=== PATIENT | male | born 1990 | race Caucasian/White ===

== ENCOUNTER 2024-04-28 10:06 | Emergency (ER) | payer OTHER, SELFPAY ==
--- NOTE | 2024-04-28 10:30 | ED_ITS ---
HPI - Extremity Problem General Chief complaint: Extremity Problem,Nontraumatic Stated complaint: rt foot irritation Time Seen by Provider: 04/28/24 11:08 Source: patient, RN notes reviewed and old records reviewed Mode of arrival: ambulatory Limitations: no limitations History of Present Illness HPI Narrative: 34-year-old male presents to the [facility] with right foot irritation to the dorsal aspect. States that he has athlete's foot for the last 3 weeks, over the last 24-48 hours the redness has gone up the anterior portion of his leg States he has used athlete's foot cream on and. States that he has recently hockey and became very sweaty. Related Data Home Medications ?Medication ?Instructions ?Recorded ?Confirmed ?Last Taken ?Type valacyclovir 500 mg tablet mg 04/28/24 Unknown History Allergies Allergy/AdvReac Type Severity Reaction Status Date / Time shellfish derived Allergy Intermediate Hives Verified 04/28/24 11:17 Review of Systems Review of Systems: All systems reviewed & are unremarkable except as noted in HPI and below Constitutional: Constitutional: Reports no additional constitutional complaints ENT: Reports system reviewed and no additional complaints, except as documented Cardiovascular: Cardiovascular: Reports no additional cardiovascular complaints, Denies chest pain and Denies dyspnea Respiratory: Respiratory: Reports no additional respiratory complaints, Denies chest congestion, Denies cough and Denies dyspnea Musculoskeletal: Musculoskeletal: Reports no additional musculoskeletal complaints Integumentary/Breasts: Skin/Breast: Reports as per HPI PMFSH Comments At the time of my signature, I reviewed and agree with the nursing past medical, surgical, social, and family history. There is no relevant family history pertinent to the patient complaint. Exam Const: General: cooperative, healthy appearing, comfortable, no acute distress, well developed, alert and well nourished Nutritional Appearance: well nourished Orientation/consciousness: patient oriented x3 Limitations: no limitations HENMT: Head: normal to inspection Face/Nose/Sinus: normal facial exam and face symmetric Face and sinus: normal facial exam and face symmetric Eyes: General: appearance normal, both eyes and all related structures Neck: Neck: normal visual inspection, full ROM, no lymphadenopathy and no meningeal signs Chest: Chest palpation & inspection: normal inspection of the chest Resp: Effort & Inspection: normal respiratory effort and able to speak in complete sentences Cardio: Rate: regular rate Skin: General skin exam: normal color Other: Dry flaky skin, erythema, cracking between all 5 toes and the dorsal aspect the foot, right. Red blotchy areas up just the anterior portion, not circumferential. Area is not hot to touch. No fluctuant areas. Areas are blanchable. Patient denies any pain to the area. Areas are not raised. Neuro: General: patient oriented x3, gait normal, moves all extremities and no meningeal signs Cognition (Neuro): normal cognition Speech: normal speech Gait exam (Neuro): Normal gait present Extrem: General: normal to inspection, full ROM, capillary refill normal and normal gait Psych: Appearance: grossly normal and well kempt Mental Status: mental status grossly normal Speech and movement: Normal speech and movement present and Clear speech present Affect: normal affect Attitude: cooperative Course Course Level of Care: Express Care Visit Vital Signs Vital signs: Vital Signs Temperature 97.1 F L 04/28/24 10:44 Pulse Rate 77 04/28/24 10:44 Respiratory Rate 18 04/28/24 10:44 Blood Pressure 145/82 H 04/28/24 10:44 Pulse Oximetry 98 04/28/24 10:44 Oxygen Delivery Room Air 04/28/24 10:44 Temperature 97.1 F L 04/28/24 10:44 Pulse Rate 77 04/28/24 10:44 Respiratory Rate 18 04/28/24 10:44 Blood Pressure 145/82 H 04/28/24 10:44 Pulse Oximetry 98 04/28/24 10:44 Oxygen Delivery Room Air 04/28/24 10:44 Reviewed MDM - Extremity (Nontraumatic) MDM Narrative Medical decision making narrative: Patient presents with 3 weeks of treating athlete's foot, over the last 24-48 hours has gone from the top of the foot up the anterior portion of his leg. Patient is nontoxic, sitting comfortably in exam room. Patient's exam concern for a fungal infection. Patient is visiting the area, states he will when he returns home follow-up with a farm supervisor Patient appropriate for outpatient treatment with antifungal Discharge instructions reviewed with patient, as well as provided in writing per nursing staff. The instructions also include specific and strict return/GO TO THE ER as well as f/u information. All questions have been answered, and the patient deny any further questions with discharge and discharge plan. Some parts of this dictation were generated by voice recognition software and may contain typographical and/or grammatical inaccuracies. Differential Diagnosis Differential diagnosis: Likely cellulitis and other (Tinea pedis) Critical Care Time Critical Care Time Critical Care Time: No Discharge Plan Discharge Clinical Impression: Tinea pedis Qualifiers: Laterality: right Qualified Code(s): B35.3 - Tinea pedis Patient Disposition: Home, Self-Care Condition: Stable Instructions: Antibiotic Form, Skin Yeast Infection (ED) Additional Instructions: Follow-up as soon as possible with a farm supervisor. Follow-up with primary care provider For new or worsening symptoms go directly to emergency room Patient Language: Armenian Prescriptions: New fluconazole 150 mg tablet 150 mg PO ONCE Qty: 2 0RF Rx Instructions: Take 1 tablet today, repeat 72 hours clotrimazole 1 % cream 1 applic topical BID 28 Days Qty: 45 0RF No Action valacyclovir 500 mg tablet Follow-up/Referrals: UNKNOWN,DOCTOR [Primary Care Provider] -
[2024-04-28 10:44] VITALS: BP 145/82; PULSE 77; RESP 18; TEMP 36.2; O2SAT 98
== END 2024-04-28 11:29 | disposition home or self-care (01) ==
PROVIDERS: Emergency Provider Nurse Practitioner
DX: B35.3 Tinea pedis (principal)
CPT/HCPCS: 99203; G0463